=== PATIENT | male | born 1970 | race Asian ===

== ENCOUNTER 2020-05-19 10:53 | Emergency (ER) | payer BC, MEDICAID, OTHER ==
[2020-05-19 11:00] VITALS: BP 187/93
--- NOTE | 2020-05-19 11:17 | ED Physician Documentation ---
PD HPI UPPER EXT INJURY - Stated complaint Stated Complaint: L HAND INJURY - Chief complaint Chief Complaint: Trauma Ext - History obtained from History obtained from: Patient - History of Present Illness Location: Left, Finger (middle finger distal phalanx.) Type of injury: Foreign body (he got point of large fishhook into left middle finger accidentally (the fishing plug was hanging and he caught his finger on it, to the prince embedded so it is not backing out).) Where injury occurred: Home Timing - onset: Today Timing - details: Abrupt onset, Still present Associated symptoms: No: Weakness, Numbness Review of Systems Neurologic: denies: Focal weakness, Numbness PD PAST MEDICAL HISTORY - Past Medical History Past Medical History: Yes Cardiovascular: None Respiratory: None Endocrine/Autoimmune: Type 2 diabetes GI: None : None HEENT: None Psych: None Musculoskeletal: None Derm: None - Past Surgical History Past Surgical History: No General: Appendectomy - Present Medications Home Medications: Ambulatory Orders Medication Instructions Recorded Confirmed No Known Home Medications 05/19/20 05/19/20 - Allergies Allergies/Adverse Reactions: Allergies Allergy/AdvReac Type Severity Reaction Status Date / Time sulfamethoxazole Allergy Unknown Respiratory Verified 05/19/20 10:57 [From Bactrim] trimethoprim [From Bactrim] Allergy Unknown Respiratory Verified 05/19/20 10:57 - Social History Does the pt smoke?: Yes Smoking Status: Current every day smoker Does the pt drink ETOH?: Yes Does the pt have substance abuse?: No - Immunizations Immunizations are current?: Yes Immunizations: TDAP >10years/unknown - POLST Patient has POLST: No PD ED PE NORMAL - Vitals Vital signs reviewed: Yes - General General: Alert and oriented X 3, No acute distress, Well developed/nourished - Derm Derm: Normal color, Warm and dry - Extremities Extremities: Other (left finger distal phalanx with thick hook embedded with the prince under the skin. He had cut the shank of it, but the end part still in finger. ) - Neuro Neuro: No motor deficit, No sensory deficit Results - Vitals Vitals: Vital Signs - 24 hr 05/19/20 10:57 Temperature 36.2 C L Heart Rate 88 Respiratory 18 Rate Blood Pressure 187/93 H O2 Saturation 98 Oxygen O2 Source Room air Procedures - FB removal FB location: Subcutaneous FB removal preparation: Local anesthesia-specify (2% lido) Removal method: Incision FB removal aftercare: Patient tolerated well, Removed successfully PD MEDICAL DECISION MAKING - ED course Complexity details: considered differential (he had cut the shaft of the hook midway to take the dangle out of the FB (the main body of the plug). This made it harder to consider advancing it. Instead, local anesth and then I slit small hole adjacent to shaft so the prince had way loose. Removed the hook and then sutured lac with 3 sutures.), d/w patient Departure - Departure Disposition: 01 Home, Self Care Clinical Impression: Fish hook injury of finger Qualifiers: Encounter type: initial encounter Laterality: left Qualified Code(s): S69.92XA - Unspecified injury of left wrist, hand and finger(s), initial encounter Condition: Stable Record reviewed to determine appropriate education?: Yes Instructions: ED Puncture Wound Fish Hook Removed Comments: It is okay to wash and shower the wound. Recheck if signs of infection. Apply a little ointment once or twice daily to keep it from getting dry and hard. Suture removal 5 to 7 days. Discharge Date/Time: 05/19/20 11:55
== END 2020-05-19 11:55 | disposition home or self-care (01) ==
LOC: ED 10:53
DX: S61.243A Puncture wound with foreign body of left middle finger without damage to nail, initial encounter (principal); W45.8XXA Other foreign body or object entering through skin, initial encounter; Y92.009 Unspecified place in unspecified non-institutional (private) residence as the place of occurrence of the external cause; E11.9 Type 2 diabetes mellitus without complications; F17.200 Nicotine dependence, unspecified, uncomplicated
CPT/HCPCS: 10120

== ENCOUNTER 2021-04-06 13:09 | Emergency (ER) | payer OTHER ==
[2021-04-06 13:18] VITALS: BP 180/91
[2021-04-06] MEDS ORDERED: BACITRACIN ZINC OINT 1 PACKET TOP STA (13:23)
--- NOTE | 2021-04-06 13:26 | ED Physician Documentation ---
PD HPI SKIN - Stated complaint Stated Complaint: RASH ON ARM/FACE - Chief complaint Chief Complaint: Allergic Rx - History obtained from History obtained from: Patient (He sustained a thermal burn on the left forearm about a week ago. It was healing well, but he started using triple antibiotic ointment and now has a very itchy spotty rash on and around it. No fevers.) Review of Systems Constitutional: reports: Reviewed and negative Eyes: reports: Reviewed and negative Ears: reports: Reviewed and negative Nose: reports: Reviewed and negative Throat: reports: Reviewed and negative PD PAST MEDICAL HISTORY - Past Medical History Past Medical History: Yes Cardiovascular: None Respiratory: None Neuro: None Endocrine/Autoimmune: Type 2 diabetes GI: None : None HEENT: None Psych: None Musculoskeletal: None Derm: None - Past Surgical History Past Surgical History: No General: Appendectomy - Present Medications Home Medications: Ambulatory Orders Medication Instructions Recorded Confirmed Triamcinolone 0.1% Cream [Kenalog 1 applic TOP BID #2 tub 04/06/21 0.1% Cream] cephALEXin [Keflex] 500 mg PO Q6H #28 cap 04/06/21 - Allergies Allergies/Adverse Reactions: Allergies Allergy/AdvReac Type Severity Reaction Status Date / Time sulfamethoxazole Allergy Unknown Respiratory Verified 04/06/21 13:12 [From Bactrim] trimethoprim [From Bactrim] Allergy Unknown Respiratory Verified 04/06/21 13:12 - Social History Does the pt smoke?: Yes Smoking Status: Current every day smoker Does the pt drink ETOH?: Yes Does the pt have substance abuse?: No - Immunizations Immunizations are current?: Yes Immunizations: TDAP >10years/unknown - POLST Patient has POLST: No PD ED PE NORMAL - Vitals Vital signs reviewed: Yes - General General: Alert and oriented X 3, No acute distress - Derm Derm: Other (There is palm sized burn to the anterior left forearm that is quite red, there are surrounding vesicles without spreading cellulitis.) - Neuro Neuro: Alert and oriented X 3, Normal speech Results - Vitals Vitals: Vital Signs - 24 hr 04/06/21 13:13 Temperature 36.2 C L Heart Rate 91 Respiratory 16 Rate Blood Pressure 180/91 H O2 Saturation 100 Oxygen O2 Source Room air PD MEDICAL DECISION MAKING - ED course ED course: The appearance is consistent with a contact dermatitis from neomycin and was advised to discontinue use. It may have some cellulitis to so will start on Keflex. Departure - Departure Disposition: 01 Home, Self Care Clinical Impression: Contact dermatitis due to neomycin Burn of arm, left, second degree Qualifiers: Encounter type: initial encounter Upper extremity location: forearm Qualified Code(s): T22.212A - Burn of second degree of left forearm, initial encounter Condition: Good Record reviewed to determine appropriate education?: Yes Instructions: ED Dermatitis Contact, ED Burn D 2nd Prescriptions: cephALEXin [Keflex] 500 mg PO Q6H #28 cap Triamcinolone 0.1% Cream [Kenalog 0.1% Cream] 1 applic TOP BID #2 tub Comments: As discussed, I would discontinue use of neomycin-containing topical antibiotics as you are having a contact dermatitis to this. I am not sure its not infected so we are starting some oral antibiotics in addition to some topical steroids for the symptoms. Return as needed for new or worsening symptoms. Recheck with your doctor in 1 week.
== END 2021-04-06 13:42 | disposition home or self-care (01) ==
LOC: ED 13:09
DX: L25.1 Unspecified contact dermatitis due to drugs in contact with skin (principal); T36.5X5A Adverse effect of aminoglycosides, initial encounter; F17.200 Nicotine dependence, unspecified, uncomplicated; T22.212A Burn of second degree of left forearm, initial encounter
CPT/HCPCS: 99282; 99283; A9270